=== PATIENT | male | born 1955 | race Caucasian/White ===

== ENCOUNTER 2019-02-19 03:28 | Emergency (ER) | payer BC ==
[~2019-02-19] VITALS: Ht 188 cm; Wt 113.4 kg
[~2019-02-19 03:28] MED LIST: ASPI-482 PO; ATOR40TA PO; ATORVASTATIN CA80 MG PO; BYSTOLIC10 MG PO; CA C1TAB28 PO; LISI-338 PO; MULT-18 PO; NIAC1000 PO; OMEG1CAP6 PO; PANT40TA77 PO; PRAS10TA9 PO; TAMS0.4C2 PO; ZOLP10TA4 PO
[2019-02-19 03:40] VITALS: BP 189/81
[2019-02-19] MEDS ORDERED: MELO15TA23 PO (03:55)
--- NOTE | 2019-02-19 03:55 | PHYS DOC ---
Past Medical History Past Medical History: CAD, Diabetes-Type II, High Cholesterol, Hypertension Additional Past Medical Histor: enlarged prostate Past Surgical History: Coronary Bypass Surgery Additional Past Surgical Histo: hand, rotator cuff Alcohol Use: None Drug Use: None Adult General Chief Complaint Chief Complaint: ANKLE PROBLEM [facility] HPI Patient is a 63-year-old male presents with a one-month history of right heel pain. He states in the morning when he gets up the pain is severe but is able to walk it off throughout the day. He states as of late the pain seems to be more persistent and is unable to walk it off. He does not recall any specific trauma. He does not notice any significant swelling or bruising.[] Review of Systems Review of Systems Constitutional: Denies fever or chills [] Eyes: Denies change in visual acuity, redness, or eye pain [] HENT: Denies nasal congestion or sore throat [] Respiratory: Denies cough or shortness of breath [] Cardiovascular: No additional information not addressed in HPI [] GI: Denies abdominal pain, nausea, vomiting, bloody stools or diarrhea [] : Denies dysuria or hematuria [] Musculoskeletal: Per history of present illness[] Integument: Denies rash or skin lesions [] Neurologic: Denies headache, focal weakness or sensory changes [] Endocrine: Denies polyuria or polydipsia [] All other systems were reviewed and found to be within normal limits, except as documented in this note. Current Medications Current Medications Current Medications Medications (Trade) Dose Ordered Sig/Tila Start Time Stop Time Status Last Admin Dose Admin Ketorolac Tromethamine (Toradol Im) 60 mg 1X ONCE 02/19/19 04:00 02/19/19 04:01 UNV Allergies Allergies Allergies Coded Allergies Type Severity Reaction Last Updated Verified amoxicillin Allergy Intermediate Rash 02/26/16 Yes Physical Exam Physical Exam Constitutional: Well developed, well nourished, no acute distress, non-toxic appearance. [] HENT: Normocephalic, atraumatic, bilateral external ears normal, oropharynx moist, no oral exudates, nose normal. [] Eyes: PERRLA, EOMI, conjunctiva normal, no discharge. [] Neck: Normal range of motion, no tenderness, supple, no stridor. [] Cardiovascular:Heart rate regular rhythm, no murmur [] Lungs & Thorax: Bilateral breath sounds clear to auscultation [] Abdomen: Bowel sounds normal, soft, no tenderness, no masses, no pulsatile masses. [] Skin: Warm, dry, no erythema, no rash. [] Back: No tenderness, no CVA tenderness. [] Extremities: He does have some tenderness damaged insertion of the plantar fascia on the heel. [] Neurologic: Alert and oriented X 3, normal motor function, normal sensory function, no focal deficits noted. [] Psychologic: Affect normal, judgement normal, mood normal. [] EKG EKG [] Radiology/Procedures Radiology/Procedures [] Course & Med Decision Making Course & Med Decision Making Pertinent Labs and Imaging studies reviewed. (See chart for details) [] Dragon Disclaimer Dragon Disclaimer This electronic medical record was generated, in whole or in part, using a voice recognition dictation system. Departure Departure Impression: Primary Impression: Plantar fasciitis of right foot Disposition: HOME, SELF-CARE Condition: STABLE Referrals: TEDDY PATTERSON MD (PCP) Patient Instructions: Plantar Fasciitis, Plantar Fasciitis (Heel Spur Syndrome) with [facility] Additional Instructions: Return to the emergency department with any new or concerning symptoms Scripts Meloxicam (MELOXICAM) 15 Mg Tablet 1 TAB PO DAILY for pain, #30 TAB 2 Refills Prov: TERRELL GRIFFITH DO 02/19/19 TERRELL GRIFFITH DO Feb 19, 2019 03:55
[2019-02-19] MEDS ORDERED: KETOROLAC 60 MG/2 ML VIAL. IM ONE (04:30)
== END 2019-02-19 04:18 | disposition home or self-care (01) ==
LOC: ER 03:28
DX: M72.2 Plantar fascial fibromatosis (principal); M25.571 Pain in right ankle and joints of right foot; I11.9 Hypertensive heart disease without heart failure; E11.9 Type 2 diabetes mellitus without complications; E78.00 Pure hypercholesterolemia, unspecified; Z98.890 Other specified postprocedural states; Z88.1 Allergy status to other antibiotic agents
CPT/HCPCS: 96372; 99283; J1885

== ENCOUNTER → 2019-04-10 | Outpatient (CLI) | payer BC ==
[~2019-04-10] MED LIST changes: +MELO15TA23 PO
--- NOTE | 2019-04-10 09:45 | CARD ---
MR#: [id number] Date of Study: 04/10/2019 Ordering Physician: GEO HENNESSY, Referring Physician: GEO HENNESSY, Tech: Patricia Dean [facility] APPROVED REPORT EXAM: Two-dimensional and M-mode echocardiogram with Doppler and color Doppler. Other Information Quality : AdequateHR: 65bpm Rhythm : NSR/PVCs INDICATION CAD. Hx: CABG, stents, HTN, HLP. 2D DIMENSIONS IVSd1.3 (0.7-1.1cm)Aortic Root(2D)3.5 (2.0-3.7cm) LVDd5.4 (3.9-5.9cm)LVOT Diameter2.2 (1.8-2.4cm) PWd1.1 (0.7-1.1cm)LVDs4.1 (2.5-4.0cm) FS (%) 23.6 %SV65.2 ml LVEF(%)46.7 (>50%) Aortic Valve AoV Peak Adelso.147.5cm/Elaine Peak GR.8.7mmHg LVOT Peak Adelso.105.9cm/sAVA (VMAX)2.83cm2 Mitral Valve MV E Wsqtfdeo37.8cm/sMV DECEL [id number] MV A Epccctmy08.5cm/sE/A Ratio0.8 MV A [id number] Pulmonary Valve PV Peak Hlmnrtdk182.8cm/s Tricuspid Valve TR P. Cpqeqsra215kn/sRAP RKNKRYVW4kaHv TR Peak Gr.17buLnZDFN04zaSp Pulmonary Vein S1 Zkafqaqu16.6cm/sD2 Mafqtpdi35.1cm/s PVa [id number] LEFT VENTRICLE The left ventricle is normal size. There is mild concentric left ventricular hypertrophy. The left ve ntricular systolic function is normal. The Ejection Fraction is 50-55%. Transmitral Doppler flow codi juve is Grade I-abnormal relaxation pattern. RIGHT VENTRICLE The right ventricle is normal size. The right ventricular systolic function is normal. ATRIA The left atrium size is normal. The right atrium size is normal. The interatrial septum is intact wit h no evidence for an atrial septal defect or patent foramen ovale as noted on 2-D or Doppler imaging. AORTIC VALVE The aortic valve is normal in structure and function. No aortic regurgitation. No aortic valvular chrystal nosis. MITRAL VALVE The mitral valve is normal in structure and function. Trace mitral regurgitation. TRICUSPID VALVE The tricuspid valve is normal in structure and function. Trace tricuspid regurgitation. Estimated PAP is 30-35mmHg. PULMONIC VALVE The pulmonary valve is normal in structure and function. No pulmonic valvular regurgitation. GREAT VESSELS The aortic root is normal in size. The ascending aorta is normal in size. The IVC is normal in size a nd collapses >50% with inspiration. PERICARDIAL EFFUSION There is no evidence of significant pericardial effusion. Critical Notification Critical Value: No <Conclusion> The left ventricular systolic function is normal. The Ejection Fraction is 50-55%. Transmitral Doppler flow pattern is Grade I-abnormal relaxation pattern. Trace mitral regurgitation. Trace tricuspid regurgitation. Estimated PAP is 30-35mmHg. There is no evidence of significant pericardial effusion. Signed by : Nestor Woods, Electronically Approved : 04/10/2019 09:45:30
== END | disposition home or self-care (01) ==
LOC: ECHO 08:31
PROVIDERS: ATTEND Internal Medicine Cardiovascular Disease
DX: I51.7 Cardiomegaly (principal); Z95.1 Presence of aortocoronary bypass graft
CPT/HCPCS: 93306